=== PATIENT | male | born 1935 | race Caucasian/White ===

== ENCOUNTER 2016-12-04 03:34 | Observation (INO) | payer OTHER ==
--- NOTE | 2016-12-04 03:53 | EDPHY ---
H & P Stated Complaint: SOB and cough HPI/ROS: HPI CHIEF COMPLAINT: Shortness of breath, cough, wheezing HISTORY OF PRESENT ILLNESS: This patient very pleasant 81-year-old male, significant past medical history for pacemaker, CPAP at night with 4 L nasal cannula, presents to the emergency room at 4 o'clock in the morning with shortness of breath, cough and wheezing. Patient states since Friday he has had a nagging cough nonproductive, and intermittent wheezing. Patient denies any fever, vomiting or diarrhea denies chest pain or chest tightness. He states he cannot stop coughing it is keeping him up at night. Denies productive cough. Denies pleuritic pain. Denies chest pain. No underlying lung disease. Denies history of COPD or emphysema History of pneumonia 5 years ago. He does tell me he used a inhaler albuterol however it is 2 years old he is unsure if he even works. Past Medical History: Pacemaker for bradycardia, CPAP at night, hypertension, reflux, depression Past Surgical History: Pacemaker, appendectomy Social History: Denies use of drugs alcohol tobacco products Family History: Noncontributory ROS REVIEW OF SYSTEMS: A comprehensive 10 point review of systems is otherwise negative aside from elements mentioned in the history of present illness. Exam Constitutional triage nursing summary reviewed, vital signs reviewed, awake/ alert. Eyes normal conjunctivae and sclera, EOMI, PERRLA. HENT normal inspection, atraumatic, moist mucus membranes, no epistaxis, neck supple/ no meningismus, no raccoon eyes. Respiratory decreased breath sounds bilaterally,bilateral lung field wheezing, auditory wheezing, no crackles or rales Cardiovascular rate normal, regular rhythm, no murmur, no edema, distal pulses normal. Gastrointestinal soft, non-tender, no rebound, no guarding, normal bowel sounds, no distension, no pulsatile mass. Genitourinary no CVA tenderness. Musculoskeletal no midline vertebral tenderness, full range of motion, no calf swelling, no tenderness of extremities, no meningismus, good pulses, neurovascularly intact. Skin pink, warm, & dry, no rash, skin atraumatic. Neurologic awake, alert and oriented x 3, AAOx3, moves all 4 extremities equally, motor intact, sensory intact, CN II-XII intact, normal cerebellar, normal vision, normal speech. Psychiatric normal mood/affect. Heme/Lymph/Immune no lymphadenopathy. Differential Diagnosis: includes but is not limited to in a particular order, bronchitis, viral syndrome, pneumonia, pneumothorax, CHF Medical Decision Making: This patient appears well nontoxic however audible wheezing on exam patient be given a DuoNeb breathing treatment, patient be given fluid bolus, IV Solu-Medrol, two view chest x-ray will be obtained blood work and will re-evaluate. Re-evaluation: EKG interpretation by me on record in [facility] system. Impression time of EKG 4:51 a.m., this is sinus rhythm rate of 60 right bundle-branch block present. And left anterior fascicular block present. Otherwise not appreciate acute ischemic change. ED x-ray chest two view: Image interpreted by myself. Possible retrocardiac pneumonia. 0457: Re-evaluation at this time patient did receive a DuoNeb breathing treatment. He still has wheezing and still feels shortness of breath. His EKG does not show acute ischemia troponin is negative. Chest x-ray two view shows possible small retrocardiac pneumonia. He will be given a 2nd DuoNeb breathing treatment. He has received 1 L normal saline IV fluid bolus, 125 mg IV Solu- Medrol and I have ordered him IV Rocephin and azithromycin for community- acquired pneumonia. He lives [address]. He is requiring 2 L nasal cannula oxygen at this time as he does desaturate down to 88%. Still has wheezing. Given his age where he lives hypoxia and wheezing will benefit from hospital admission day of observation breathing treatments IV fluids and time for steroids to kick in. He is agreeable for this. 0502: spoke with Dr. Slater who agrees to admit the patient. Source: Patient - Personal History Current Tetanus/Diphtheria Vaccine: Yes Current Tetanus Diphtheria and Acellular Pertussis (TDAP): Yes - Medical/Surgical History Hx Asthma: No Hx Chronic Respiratory Disease: No Hx Diabetes: No Hx Cardiac Disease: Yes Hx Renal Disease: No Hx Cirrhosis: No Hx Alcoholism: No Hx HIV/AIDS: No Hx Splenectomy or Spleen Trauma: No Other PMH: HTN, Hyperlipidemia, GERD, depression. R THR, L TKR, appendectomy, tonsillectomy - Social History Smoking Status: Never smoked Constitutional: Initial Vital Signs Temperature (C) 37.5 C 12/04/16 03:38 Heart Rate 60 02/22/17 03:38 Respiratory Rate 18 12/04/16 03:38 Blood Pressure 150/85 H 12/04/16 03:38 O2 Sat (%) 91 L 12/04/16 03:38 O2 Delivery Mode Room Air O2 (L/minute) 2 Allergies/Adverse Reactions: No Known Allergies Allergy (Verified 12/04/16 03:38) Home Medications: Medication Instructions Recorded Amlodipine Besylate 01/11/14 Aspirin 81mg (OTC) 01/11/14 Celexa 01/11/14 Fish Oil 01/11/14 Gabapentin 01/11/14 Losartan Potassium 01/11/14 Mvi, Adult No.2 Without Vit K 01/11/14 Pepcid 20 MG (OTC) 01/11/14 Simvastatin 01/11/14 Vit B12 01/11/14 Tessalon Pearles 12/04/16 Medical Decision Making - Data Points Laboratory Results: Laboratory Results 12/04/16 04:10 12/04/16 04:10 12/04/16 12/04/16 12/04/16 04:10 04:10 04:10 WBC 7.72 10^3/uL 10^3/uL (3.80-9.50) RBC 5.02 10^6/uL 10^6/uL (4.40-6.38) Hgb 15.9 g/dL g/dL (13.7-17.5) Hct 47.0 % % (40.0-51.0) MCV 93.6 fL fL (81.5-99.8) MCH 31.7 pg pg (27.9-34.1) MCHC 33.8 g/dL g/dL (32.4-36.7) RDW 12.8 % % (11.5-15.2) Plt Count 166 10^3/uL 10^3/uL (150-400) MPV 10.9 fL fL (8.7-11.7) Neut % (Auto) 63.7 % % (39.3-74.2) Lymph % (Auto) 20.5 % % (15.0-45.0) [place] % (Auto) 14.0 % H % (4.5-13.0) Eos % (Auto) 1.4 % % (0.6-7.6) Baso % (Auto) 0.1 % L % (0.3-1.7) Nucleat RBC Rel Count 0.0 % % (0.0-0.2) Absolute Neuts (auto) 4.92 10^3/uL 10^3/uL (1.70-6.50) Absolute Lymphs (auto) 1.58 10^3/uL 10^3/uL (1.00-3.00) Absolute Monos (auto) 1.08 10^3/uL H 10^3/uL (0.30-0.80) Absolute Eos (auto) 0.11 10^3/uL 10^3/uL (0.03-0.40) Absolute Basos (auto) 0.01 10^3/uL L 10^3/uL (0.02-0.10) Absolute Nucleated RBC 0.00 10^3/uL 10^3/uL (0-0.01) Immature Gran % 0.3 % % (0.0-1.1) Immature Gran # 0.02 10^3/uL 10^3/uL (0.00-0.10) PT 13.0 SEC SEC (12.0-15.0) INR 0.99 (0.83-1.16) APTT 27.4 SEC SEC (23.0-38.0) Sodium 137 mEq/L mEq/L (134-144) Potassium 4.9 mEq/L mEq/L (3.5-5.2) Chloride 101 mEq/L mEq/L (97-110) Carbon Dioxide 26 mEq/l mEq/l (22-31) Anion Gap 10 mEq/L mEq/L (8-16) BUN 13 mg/dL mg/dL (7-23) Creatinine 1.2 mg/dL mg/dL (0.7-1.3) Estimated GFR 58 Glucose 181 mg/dL H mg/dL (70-100) Calcium 9.5 mg/dL mg/dL (8.5-10.4) Troponin I < 0.012 ng/mL ng/mL (0-0.034) NT-Pro-B Natriuret Pep 86 pg/mL pg/mL (0-450) Influenza Typ A,B (DFA) 12/04/16 03:48 WBC RBC Hgb Hct MCV MCH MCHC RDW Plt Count MPV Neut % (Auto) Lymph % (Auto) Tucker % (Auto) Eos % (Auto) Baso % (Auto) Nucleat RBC Rel Count Absolute Neuts (auto) Absolute Lymphs (auto) Absolute Monos (auto) Absolute Eos (auto) Absolute Basos (auto) Absolute Nucleated RBC Immature Gran % Immature Gran # PT INR APTT Sodium Potassium Chloride Carbon Dioxide Anion Gap BUN Creatinine Estimated GFR Glucose Calcium Troponin I NT-Pro-B Natriuret Pep Influenza Typ A,B (DFA) Pending Medications Given: Discontinued Medications Hydrocodone Bitart/Acetaminophen ([place] 5/325) 1 tab PO EDNOW ONE Stop: 12/04/16 04:01 Last Admin: 12/04/16 04:25 Dose: 1 tab Albuterol/Ipratropium (Duoneb) 3 ml IH EDNOW ONE Stop: 12/04/16 03:59 Last Admin: 12/04/16 04:21 Dose: 3 ml Sodium Chloride (Ns) 1,000 mls @ 0 mls/hr IV ONCE ONE PRN Reason: Wide Open Stop: 12/04/16 03:59 Last Admin: 12/04/16 04:22 Dose: 1,000 mls Methylprednisolone Sodium Succinate (Solu-Medrol) 125 mg IVP EDNOW ONE Stop: 12/04/16 03:59 Last Admin: 12/04/16 04:22 Dose: 125 mg Departure - Departure Disposition: Home, Routine, Self-Care Clinical Impression: Hypoxia Acute bronchitis Qualifiers: Bronchitis organism: unspecified organism Qualified Code(s): J20.9 - Acute bronchitis, unspecified Pneumonia Qualifiers: Pneumonia type: due to unspecified organism Laterality: unspecified laterality Lung location: unspecified part of lung Qualified Code(s): J18.9 - Pneumonia, unspecified organism Condition: Fair Referrals: GUNJAN BLANKENSHIP [Primary Care Provider] - As per Instructions
[2016-12-04] MEDS ORDERED: methylPREDNISolone SOD SUCC 125 MG/2 ML VIAL IVP ONE (03:58)
[2016-12-04] MEDS ORDERED: IPRATROPIUM/ALBUTEROL 3 ML DEYVIAL IH ONE ×2 (03:58→04:54)
[2016-12-04] MEDS ORDERED: NS 1,000 ML IV ONE (03:58)
[2016-12-04] MEDS ORDERED: HYDROCODONE/APAP 5/325 TAB PO ONE (04:00)
[2016-12-04 04:23] LABS: % IMMATURE GRANULYOCYTES 0.3 % (0.0-1.1); ABSOLUTE IMMATURE GRANULOCYTES 0.02 10^3/uL (0.00-0.10); ADD DIFF? NO; ADD MORPH? NO; ADD SCAN? NO; ATYPICAL LYMPHOCYTE FLAG 20 (0-99); FRAGMENT RBC FLAG 0 (0-99); HEMOGLOBIN 15.9 g/dL (13.7-17.5); LEFT SHIFT FLG 0 (0-99); LIPEMIA HEMOLYSIS FLAG 90 (0-99); MEAN CELL HEMOGLOBIN 31.7 pg (27.9-34.1); MEAN CELL HEMOGLOBIN CONCENTR. 33.8 g/dL (32.4-36.7); MEAN CELL VOLUME 93.6 fL (81.5-99.8); MEAN PLATELET VOLUME 10.9 fL (8.7-11.7); PLATELET CLUMPS FLAG 20 (0-99); PLATELET COUNT 166 10^3/uL (150-400); RED BLOOD CELL COUNT 5.02 10^6/uL (4.40-6.38); RED CELL DISTRIBUTION WIDTH 12.8 % (11.5-15.2)
[2016-12-04 04:35] LABS: ANION GAP 10 mEq/L (8-16); CALCIUM 9.5 mg/dL (8.5-10.4); CARBON DIOXIDE 26 mEq/l (22-31); CHLORIDE 101 mEq/L (97-110); CREATININE 1.2 mg/dL (0.7-1.3); GLOMERULAR FILTRATION RATE 58; GLUCOSE 181 mg/dL (70-100); POTASSIUM 4.9 mEq/L (3.5-5.2); SODIUM 137 mEq/L (134-144)
[2016-12-04 04:39] LABS: INR 0.99 (0.83-1.16)
[2016-12-04 04:40] LABS: APTT 27.4 SEC (23.0-38.0)
[2016-12-04 04:46] LABS: TROPONIN I < 0.012 ng/mL (0-0.034)
[2016-12-04] MEDS ORDERED: AZITHROMYCIN IV 500 MG in D5W 250 ML IV ONE ×2 (04:51→10:00)
--- NOTE | 2016-12-04 04:53 | CPEKG ---
Heart Rate: 68 RR Interval: 882 P-R Interval: 176 QRSD Interval: 140 QT Interval: 428 QTC Interval: 456 P Mears: 57 QRS Mears: -66 T Wave Mears: 37 EKG Severity - ABNORMAL ECG - EKG Impression: SINUS RHYTHM ,PACEMAKER ACTIVITY EKG Impression: RBBB AND LAFB Electronically Signed By: Nicola Augustin 05-Dec-2016 12:14:53
--- NOTE | 2016-12-04 05:44 | PDGENHP ---
History and Physical - Chief Complaint cough - History of Present Illness 81 y/o male with history of hypertension presents to the ED with worsening nonproductive cough since Friday. Last night while trying to sleep he began gasping for air and decided to come to the hospital for further evaluation. He denies any fevers or chills. He denies chest pain. He was seen by his pcp who prescribed Tessalon that hasn't helped. He has also been using Mucinex without improvement. History Information - Allergies/Home Medication List Allergies/Adverse Reactions: No Known Allergies Allergy (Verified 12/04/16 03:38) Home Medications: Amlodipine Besylate 01/11/14 [Last Taken Unknown] Aspirin 81mg (OTC) 01/11/14 [Last Taken Unknown] Celexa 01/11/14 [Last Taken Unknown] Fish Oil 01/11/14 [Last Taken Unknown] Gabapentin 01/11/14 [Last Taken Unknown] Losartan Potassium 01/11/14 [Last Taken Unknown] Mvi, Adult No.2 Without Vit K 01/11/14 [Last Taken Unknown] Pepcid 20 MG (OTC) 01/11/14 [Last Taken Unknown] Simvastatin 01/11/14 [Last Taken Unknown] Vit B12 01/11/14 [Last Taken Unknown] Tessalon Pearles 12/04/16 [Last Taken Unknown] I have personally reviewed and updated: family history, medical history, social history, surgical history - Past Medical History GERD, hypertension Additional medical history: sick sinus syndrome - Surgical History Reports: appendectomy Additional surgical history: bilat TKA, right RAFAT - Family History Additional family history: both parents - Social History Smoking Status: Never smoked Alcohol Use: Other (daily without history of withdrawal) Review of Systems ROS: 10pt was reviewed & negative except for what was stated in HPI & below Physical Exam Temp Pulse Resp BP Pulse Ox 37.5 C 60 18 150/85 H 95 12/04/16 03:38 12/04/16 03:38 12/04/16 03:38 12/04/16 03:38 12/04/16 03:58 Constitutional: no apparent distress, appears nourished, not in pain Eyes: PERRL, anicteric sclera, EOMI Ears, Nose, Mouth, Throat: moist mucous membranes, hearing normal, ears appear normal, no oral mucosal ulcers Cardiovascular: regular rate and rhythym, no murmur, rub, or gallop, No JVD, No edema Respiratory: no respiratory distress, reduced air movement, expiratory wheeze, No rhonchi Gastrointestinal: normoactive bowel sounds, soft, non-tender abdomen, no palpable masses, distension, No guarding, No rebound Genitourinary: no bladder fullness, no bladder tenderness Skin: warm, normal color, no rashes or abrasions, no fluctuance, no induration, No mottled Musculoskeletal: full muscle strength, no muscle tenderness, normal joint ROM, no joint effusions Neurologic: AAOx3, CN II-XII Intact, No facial droop Psychiatric: interacting appropriately, not anxious, not encephalopathic, thought process linear Lymph, Heme, Immunologic: no cervical LAD, no supraclavicular LAD Lab Data & Imaging Review 12/04/16 04:10 12/04/16 04:10 WBC 7.72 10^3/uL (3.80-9.50) 12/04/16 04:10 RBC 5.02 10^6/uL (4.40-6.38) 12/04/16 04:10 Hgb 15.9 g/dL (13.7-17.5) 12/04/16 04:10 Hct 47.0 % (40.0-51.0) 12/04/16 04:10 MCV 93.6 fL (81.5-99.8) 12/04/16 04:10 MCH 31.7 pg (27.9-34.1) 12/04/16 04:10 MCHC 33.8 g/dL (32.4-36.7) 12/04/16 04:10 RDW 12.8 % (11.5-15.2) 12/04/16 04:10 Plt Count 166 10^3/uL (150-400) 12/04/16 04:10 MPV 10.9 fL (8.7-11.7) 12/04/16 04:10 Neut % (Auto) 63.7 % (39.3-74.2) 12/04/16 04:10 Lymph % (Auto) 20.5 % (15.0-45.0) 12/04/16 04:10 [place] % (Auto) 14.0 % (4.5-13.0) H 12/04/16 04:10 Eos % (Auto) 1.4 % (0.6-7.6) 12/04/16 04:10 Baso % (Auto) 0.1 % (0.3-1.7) L 12/04/16 04:10 Nucleat RBC Rel Count 0.0 % (0.0-0.2) 12/04/16 04:10 Absolute Neuts (auto) 4.92 10^3/uL (1.70-6.50) 12/04/16 04:10 Absolute Lymphs (auto) 1.58 10^3/uL (1.00-3.00) 12/04/16 04:10 Absolute Monos (auto) 1.08 10^3/uL (0.30-0.80) H 12/04/16 04:10 Absolute Eos (auto) 0.11 10^3/uL (0.03-0.40) 12/04/16 04:10 Absolute Basos (auto) 0.01 10^3/uL (0.02-0.10) L 12/04/16 04:10 Absolute Nucleated RBC 0.00 10^3/uL (0-0.01) 12/04/16 04:10 Immature Gran % 0.3 % (0.0-1.1) 12/04/16 04:10 Immature Gran # 0.02 10^3/uL (0.00-0.10) 12/04/16 04:10 PT 13.0 SEC (12.0-15.0) 12/04/16 04:10 INR 0.99 (0.83-1.16) 12/04/16 04:10 APTT 27.4 SEC (23.0-38.0) 12/04/16 04:10 Sodium 137 mEq/L (134-144) 12/04/16 04:10 Potassium 4.9 mEq/L (3.5-5.2) 12/04/16 04:10 Chloride 101 mEq/L (97-110) 12/04/16 04:10 Carbon Dioxide 26 mEq/l (22-31) 12/04/16 04:10 Anion Gap 10 mEq/L (8-16) 12/04/16 04:10 BUN 13 mg/dL (7-23) 12/04/16 04:10 Creatinine 1.2 mg/dL (0.7-1.3) 12/04/16 04:10 Estimated GFR 58 12/04/16 04:10 Glucose 181 mg/dL (70-100) H 12/04/16 04:10 Calcium 9.5 mg/dL (8.5-10.4) 12/04/16 04:10 Troponin I < 0.012 ng/mL (0-0.034) 12/04/16 04:10 NT-Pro-B Natriuret Pep 86 pg/mL (0-450) 12/04/16 04:10 Influenza Typ A,B (DFA) NEGATIVE FOR FLU (NEGATIVE) 12/04/16 03:48 Visualized and Interpreted Chest x-ray results: Yes Chest X-Ray results: no infiltrate, normal, normal heart size, infiltrate, other (ppm in left chest. final radiology read pending) Assessment & Plan Assessment: 81 y/o male with history of hypertension presents to the ED with worsening nonproductive cough since Friday # Suspect Acute bronchitis (likely viral) causing wheezing and symptoms consistent with reactive airway disease without any previous history of asthma or copd -place in observation -nebs/mucinex/prednisone -will withhold abx at this time # History of hypertension -cont home meds
[2016-12-04] MEDS ORDERED: IPRATROPIUM/ALBUTEROL 3 ML DEYVIAL IH PRN (06:01)
[2016-12-04] MEDS ORDERED: ONDANSETRON 4 MG/2 ML VIAL IVP PRN (06:01)
[2016-12-04] MEDS ORDERED: ACETAMINOPHEN 325 MG TAB PO PRN (06:01)
[2016-12-04] MEDS ORDERED: hydrALAZINE 20 MG/ML VIAL IVP PRN (08:23)
--- NOTE | 2016-12-04 09:39 | HOSPPROG ---
Hospitalist Progress Note Assessment/Plan: #Bronchitis vs Community Acquired Pneumonia #HTN-Essentiall #GERD #RODRIGO, nocturnal Hypoxemia: Needs 4 L O2 nightly, this is his baseline Plan: Pt was admitted earlier this morning Continue Steroids and Azithromycin Add Lovenox for DVT proph PT/OT consult Hydralazine for PRN HTN Meds have not been confirmed as of yet. He does not know all his meds and doses. Will be reconciled once available. S: Feels better. Still with Cough. No hx of CHF O: VSS NAD AAOx3 RRR Decreased BS, normal WOB No Edema Labs/Studies reviewed. Objective: Vital Signs Temp Pulse Resp BP Pulse Ox 36.3 C 81 14 161/82 H 92 12/04/16 08:11 12/04/16 08:11 12/04/16 08:11 12/04/16 08:11 12/04/16 08:11 12/03/16 12/04/16 12/05/16 05:59 05:59 05:59 Intake Total 1050 Balance 1050 PT 13.0 SEC (12.0-15.0) 12/04/16 04:10 INR 0.99 (0.83-1.16) 12/04/16 04:10 ICD10 Worksheet Patient Problems: Problems Problem Status Onset Acute bronchitis Acute Hypoxia Acute Pneumonia Acute
[2016-12-04] MEDS: predniSONE 20 MG TAB PO SCH (10:17)
[2016-12-04] MEDS: guaiFENesin 600 MG TAB.ER PO SCH ×2 (10:17→19:31)
[2016-12-04] MEDS: IPRATROPIUM/ALBUTEROL 3 ML DEYVIAL IH SCH ×2 (10:41→17:09)
[2016-12-04] MEDS: ENOXAPARIN 40 MG/0.4 ML SYR SC SCH (10:48)
[2016-12-04] MEDS ORDERED: TETRAHYDROZOLINE 0.05% 15 ML OPHT.BTL EACHEYE PRN (13:00)
[2016-12-04] MEDS ORDERED: guaiFENesin/CODEINE PHOS 10 ML UDCUP PO PRN (18:48)
[2016-12-05 06:05] LABS: % IMMATURE GRANULYOCYTES 0.4 % (0.0-1.1); ABSOLUTE IMMATURE GRANULOCYTES 0.05 10^3/uL (0.00-0.10); ADD DIFF? NO; ADD MORPH? NO; ADD SCAN? NO; ATYPICAL LYMPHOCYTE FLAG 20 (0-99); FRAGMENT RBC FLAG 0 (0-99); HEMATOCRIT 41.7 % (40.0-51.0); HEMOGLOBIN 14.1 g/dL (13.7-17.5); LEFT SHIFT FLG 10 (0-99); LIPEMIA HEMOLYSIS FLAG 90 (0-99); MEAN CELL HEMOGLOBIN CONCENTR. 33.8 g/dL (32.4-36.7); MEAN CELL VOLUME 94.6 fL (81.5-99.8); MEAN PLATELET VOLUME 11.7 fL (8.7-11.7); PLATELET CLUMPS FLAG 0 (0-99); PLATELET COUNT 180 10^3/uL (150-400); RED BLOOD CELL COUNT 4.41 10^6/uL (4.40-6.38); RED CELL DISTRIBUTION WIDTH 12.8 % (11.5-15.2)
[2016-12-05 06:20] LABS: ANION GAP 10 mEq/L (8-16); CALCIUM 9.1 mg/dL (8.5-10.4); CARBON DIOXIDE 24 mEq/l (22-31); CHLORIDE 103 mEq/L (97-110); GLOMERULAR FILTRATION RATE > 60; GLUCOSE 247 mg/dL (70-100); POTASSIUM 4.9 mEq/L (3.5-5.2); SODIUM 137 mEq/L (134-144)
[2016-12-05] MEDS: IPRATROPIUM/ALBUTEROL 3 ML DEYVIAL IH SCH ×3 (08:05→12:03)
[2016-12-05] MEDS: ENOXAPARIN 40 MG/0.4 ML SYR SC SCH (08:27)
[2016-12-05] MEDS: guaiFENesin 600 MG TAB.ER PO SCH (08:28)
[2016-12-05] MEDS: predniSONE 20 MG TAB PO SCH (08:28)
[2016-12-05 08:33] VITALS: O2SAT 93
[2016-12-05] MEDS ORDERED: GABAPENTIN 400 MG CAP PO SCH (09:00)
[2016-12-05] MEDS ORDERED: MULTIVITAMINS 1 EACH TAB PO SCH (09:00)
[2016-12-05] MEDS ORDERED: FAMOTIDINE 20 MG TAB PO SCH (09:00)
[2016-12-05] MEDS ORDERED: VENLAFAXINE HCL 75 MG TAB PO SCH (09:00)
[2016-12-05] MEDS ORDERED: ASCORBIC ACID 500 MG TAB PO SCH (09:00)
[2016-12-05] MEDS ORDERED: AZITHROMYCIN 250 MG TAB PO SCH (09:00)
[2016-12-05] MEDS ORDERED: OMEGA-3 FATTY ACIDS 1,000 MG CAP PO SCH (09:00)
[2016-12-05] MEDS ORDERED: CYANO/VITAMIN B12 1000 MCG TAB PO SCH (09:00)
--- NOTE | 2016-12-05 09:52 | PDDCSUM ---
Discharge Summary Discharge Summary: 81yo male admitted to [facility] with SOB and cough. Found to have Bronchitis. CXR showed possible pneumonia and he was initially treated with Rocephin. At this time he is on Azithromycin and a Steroid taper and is doing better. He is still not back to baseline. He was offered to stay another night given that he is not back to baseline, but as he is on oral meds only, he wants to continue his care at home. He also reports that he has good f/u and can likely see his PCP tomorrow. troponin and BNP unremarkable. NO CP. DDX: #Bronchitis vs Community Acquired Pneumonia: -Prednisone -Azithromycin -Supplemental O2 as needed. #HTN-no changes to home meds #GERD #RODRIGO, nocturnal Hypoxemia: Needs 4 L O2 nightly, this is his baseline pe: O: VSS NAD AAOx3 RRR Decreased BS, normal WOB No Edema Meds: see med rec f/u: per above total care time spent on discharge is 40 minutes
[2016-12-05 11:41] VITALS: BP 122/72; PULSE 71; RESP 18; TEMP 98.4
[2016-12-05] MEDS ORDERED: LOSARTAN POTASSIUM 50 MG TAB PO SCH (21:00)
[2016-12-05] MEDS ORDERED: PRAVASTATIN SODIUM 20 MG TAB PO SCH (21:00)
== END 2016-12-05 15:58 | disposition home or self-care (01) ==
LOC: INTOOBSV 05:00 → F3E 05:56
PROVIDERS: ADMIT Family Medicine; ATTEND Family Medicine
DX: J20.9 Acute bronchitis, unspecified (principal); J18.9 Pneumonia, unspecified organism; I10 Essential (primary) hypertension; G47.33 Obstructive sleep apnea (adult) (pediatric); K21.9 Gastro-esophageal reflux disease without esophagitis; Z87.01 Personal history of pneumonia (recurrent); Z95.0 Presence of cardiac pacemaker; Z87.81 Personal history of (healed) traumatic fracture
CPT/HCPCS: 71020; 93005; 97161; G0378; J0456; J0696; J1650; 96374

== ENCOUNTER 2019-01-09 17:37 | Emergency (ER) | payer OTHER ==
[2019-01-09] MEDS ORDERED: ONDANSETRON 4 MG/2 ML VIAL IVP PRN (17:57)
--- NOTE | 2019-01-09 17:57 | EDPHY ---
General Time Seen by Provider: 01/09/19 17:50 Narrative: CLINICAL IMPRESSION: Nausea ASSESSMENT/PLAN: Patient is an 83-year-old male with a significant medical history of hypertension, hyperlipidemia, diabetes mellitus, dementia, essential tremor, GERD and sick sinus syndrome status post remote pacemaker implantation who presents the emergency department with complaints of diarrhea yesterday and nausea today. Patient is afebrile, not toxic appearing and in no acute distress. His abdomen was soft, I am unable to elicit any tenderness to palpation all quadrants. An ECG was obtained which is essentially unchanged since his ECG in 2017-sinus rhythm with a rate of 63, underlying right bundle branch block. This was reviewed by myself and Dr. Bright. Troponin was 0, no findings to suggest ACS. CBC revealed no evidence of leukocytosis. Metabolic panel revealed with elevated blood glucose however no evidence of DKA or a KI, otherwise unremarkable. After treatment with IV fluids and antiemetics patient is currently tolerating by mouth with no difficulty. Plan is to continue outpatient treatment with oral fluids and oral antiemetics. Given the very benign exam, normal laboratory studies, I have a very low suspicion for appendicitis, ischemic bowel, bowel perforation or any other life threatening disease. I suspect his symptoms are secondary to viral illness in light of recent diarrhea. No recent antibiotics, no concern for C difficile. He has had no cough to suggest etiology such as pneumonia, no urinary symptoms to suggest UTI. He was noted to have elevated blood pressure in the emergency department, no evidence of hypertensive urgency or emergency. He will recheck at home and follow up with his primary care provider at [facility]. On repeat examination and prior to discharge he is well-appearing, he denies any complaints whatsoever and is abdomen is soft with no tenderness to palpation. Conservative return precautions discussed-patient will return for fever, recurrent nausea and vomiting, signs of dehydration, chest pain, shortness of breath, abdominal pain or for any other concerning symptom. Patient verbalizes understanding and he is in agreement with this plan. DIFFERENTIAL DX: Nausea and vomiting including but not limited to gastroenteritis, gastritis, appendicitis, and medication side effect. ED COURSE: 1809: ECG reviewed with Dr. Bright, essentially unchanged since previous ECG in 2016. Sinus rhythm with a rate of 63 with underlying right bundle branch block. 1834: On repeat examination the patient is comfortable appearing, no acute distress. He reports he is feeling much better. His abdomen remained soft, in unable to elicit any tenderness to palpation on exam. 1921: Patient is requesting to go home, he states he is feeling much better and denies any complaints whatsoever. He was able to tolerate p.o.. His abdomen is soft, nontender to palpation. CHIEF COMPLAINT: Nausea, feeling "crappy" HPI: Patient is an 83-year-old male with a history of hypertension, diabetes, hyperlipidemia, dementia, essential tremor and GERD who presents to the Emergency Department with sudden-onset nausea around 11:00 a.m. that has not resolved. This occurred after he drink a most. Patient reports sudden-onset nausea, no associated vomiting, has been present all day long. He states that he feels "crappy" with no other specific complaint. He is subsequently experiencing decreased appetite and generally feeling unwell. Patient endorses that he forgot to take all of his medications this morning, did not take his medications until an hour prior to arrival including his diabetic medications. He does not use insulin, no history of DKA. Patient denies any fever, runny nose, congestion or cough. He denies any chest pain or shortness of breath. He denies any abdominal pain. He has had no urinary symptoms to include dysuria , hematuria or frequency. Patient reports a single episode of diarrhea yesterday, no diarrhea or bowel movement today. He is still passing flatus. PMH: Hypertension, hyperlipidemia, diabetes mellitus, dementia, essential tremor, GERD, SSS Pertinent Past Surgical History: Appendectomy, bilateral total knee arthroplasty, right total hip arthroplasty, permanent pacemaker Family History: Not contributory Social History: Never smoked REVIEW OF SYSTEMS: All other systems negative Constitutional: Decreased appetite. No fever, no chills. Eyes: No discharge, vision change ENT: No sore throat, congestion, ear pain. Cardiovascular: No chest pain, no palpitations. Respiratory: No cough, no shortness of breath. Gastrointestinal: Nausea. No abdominal pain, diarrhea. Genitourinary: No hematuria, dysuria, flank pain. Musculoskeletal: No back pain, joint swelling, joint pain, myalgias. Skin: No rashes, color change. Neurological: No headache, dizziness, weakness. PHYSICAL EXAM: General Appearance: Patient is elderly, obese, tired appearing however not toxic-appearing. HENT: Normocephalic, atraumatic. Bilateral external ears are normal. Bilateral tympanic membranes are normal with pearly amin reflex. Nares are clear, mucosa is pink. Oropharynx is clear, uvula is midline. There is no tonsillar enlargement or exudate. The dentition is normal. Eyes: PERRLA, EOMI. Conjunctiva pink, no pallor or injection. Neck: Supple, nontender, no lymphadenopathy, no midline pain, FROM, no meningismus. Respiratory: There are no retractions, lungs are clear to auscultation. Cardiac: Regular rate and rhythm, no murmurs or gallops. Gastrointestinal: Abdomen is soft, obese, nontender, bowel sounds normal, no masses/hernia, no rigidity, guarding or focal peritoneal findings. Neurological: Alert and oriented x 3, CN 2-12 grossly intact, normal gait no ataxia, DTR's intact, normal sensation and strength. Mild left-sided resting tremor. Skin: Warm, dry, no rashes, no nodules on palpation. Musculoskeletal: Extremities are symmetrical, full range of motion, no tenderness, deformity, swelling, or erythema. Psychiatric: Patient is oriented X 3, there is no agitation. MEDICAL DECISION MAKING: Patient was seen independently. Secondary supervising physician at time of evaluation was Dr. Bright. Diagnosis: Nausea. New, requires workup Summary: See Assessment and Plan for summary of ED visit Clinical lab tests: ordered / reviewed. Independent visualization of images, tracing, or specimens: Yes. Decision to obtain medical records or history from someone other than the patient: No Review / Summarize previous medical records: Yes Discussed patient with another provider: Yes, Dr. Bright Patient Progress: Stable, discharge. - History Smoking Status: Never smoked - Objective Vital Signs: Initial Vital Signs Temperature (C) 37.0 C 01/09/19 17:43 Heart Rate 82 01/09/19 17:43 Respiratory Rate 18 01/09/19 17:43 Blood Pressure 191/115 H 01/09/19 17:43 O2 Sat (%) 97 01/09/19 17:43 O2 Delivery Mode Room Air Allergies/Adverse Reactions: No Known Allergies Allergy (Verified 12/04/16 03:38) Home Medications: Medication Instructions Recorded Losartan/Hydrochlorothiazide 01/09/19 Metformin HCl ER 01/09/19 Norvasc 10 mg (*) 01/09/19 SIMVASTATIN 01/09/19 Venlafaxine 25MG (*) 01/09/19 Laboratory Results: Laboratory Results 01/09/19 18:00 01/09/19 18:00 01/09/19 01/09/19 01/09/19 18:05 18:00 18:00 WBC 7.22 10^3/uL 10^3/uL (3.80-9.50) RBC 5.05 10^6/uL 10^6/uL (4.40-6.38) Hgb 15.3 g/dL g/dL (13.7-17.5) Hct 45.4 % % (40.0-51.0) MCV 89.9 fL fL (81.5-99.8) MCH 30.3 pg pg (27.9-34.1) MCHC 33.7 g/dL g/dL (32.4-36.7) RDW 12.7 % % (11.5-15.2) Plt Count 194 10^3/uL 10^3/uL (150-400) MPV 11.0 fL fL (8.7-11.7) Neut % (Auto) 69.1 % % (39.3-74.2) Lymph % (Auto) 18.7 % % (15.0-45.0) Lander % (Auto) 10.2 % % (4.5-13.0) Eos % (Auto) 1.2 % % (0.6-7.6) Baso % (Auto) 0.7 % % (0.3-1.7) Nucleat RBC Rel Count 0.0 % % (0.0-0.2) Absolute Neuts (auto) 4.98 10^3/uL 10^3/uL (1.70-6.50) Absolute Lymphs (auto) 1.35 10^3/uL 10^3/uL (1.00-3.00) Absolute Monos (auto) 0.74 10^3/uL 10^3/uL (0.30-0.80) Absolute Eos (auto) 0.09 10^3/uL 10^3/uL (0.03-0.40) Absolute Basos (auto) 0.05 10^3/uL 10^3/uL (0.02-0.10) Absolute Nucleated RBC 0.00 10^3/uL 10^3/uL (0-0.01) Immature Gran % 0.1 % % (0.0-1.1) Immature Gran # 0.01 10^3/uL 10^3/uL (0.00-0.10) Sodium 136 mEq/L mEq/L (135-145) Potassium 4.6 mEq/L mEq/L (3.5-5.2) Chloride 105 mEq/L mEq/L (97-110) Carbon Dioxide 24 mEq/l mEq/l (22-31) Anion Gap 7 mEq/L mEq/L (6-14) BUN 23 mg/dL mg/dL (7-23) Creatinine 0.9 mg/dL mg/dL (0.7-1.3) Estimated GFR > 60 Glucose 130 mg/dL H mg/dL (70-100) Calcium 9.6 mg/dL mg/dL (8.5-10.4) Total Bilirubin 0.4 mg/dL mg/dL (0.1-1.4) Conjugated Bilirubin 0.3 mg/dL mg/dL (0.0-0.5) Unconjugated Bilirubin 0.1 mg/dL mg/dL (0.0-1.1) AST 34 IU/L IU/L (17-59) ALT 48 IU/L IU/L (21-72) Alkaline Phosphatase 87 IU/L IU/L (38-126) POC Troponin I 0.01 ng/mL ng/mL (0.00-0.08) Total Protein 7.3 g/dL g/dL (6.3-8.2) Albumin 4.2 g/dL g/dL (3.5-5.0) Lipase 46 IU/L IU/L (23-300) Medications Given: Ondansetron HCl (Zofran) 4 mg IVP Q4 PRN PRN Reason: Nausea/Vomiting, Can't Take PO Stop: 07/08/19 17:56 Last Admin: 01/09/19 18:40 Dose: 4 mg Discontinued Medications Sodium Chloride (Ns) 1,000 mls @ 0 mls/hr IV ONCE ONE PRN Reason: Wide Open Stop: 01/09/19 18:28 Last Admin: 01/09/19 18:39 Dose: 1,000 mls Point of Care Test Results: Chemistry 01/09/19 18:05 POC Troponin I 0.01 ng/mL ng/mL (0.00-0.08) Departure - Departure Disposition: Home, Routine, Self-Care Clinical Impression: Nausea Condition: Good Instructions: Acute Nausea and Vomiting (ED) Additional Instructions: DISCHARGE INSTRUCTIONS FROM YOUR DOCTOR Thank you for visiting our emergency department today. Please keep in mind that discharge from the emergency department does not mean that there is nothing wrong - it simply means that we have not identified an emergency condition that requires further evaluation or treatment in the hospital. You should always plan to follow up with primary care for re-evaluation of your condition in the next 2-3 days. Your blood pressure was noted to be elevated in the emergency department, please recheck this at home. I suspect it is secondary to you not taking her blood pressure medications until an hour prior to coming to the emergency department. Follow up with your primary care next week. Rest, push non-diuretic, non-caffeinated fluids, clear liquid diet, then a BRAT diet (bananas, rice, applesauce, toast), then slowly advance diet to normal. Attempt small frequent meals. Zofran as prescribed as needed for any recurrent nausea and/or vomiting. Schedule a follow-up appointment with your primary care physician in the next 1- 2 days for re-evaluation. Bring a copy of your test results with you to that appointment. Return for increased or unmanageable pain, new site or character of pain, flank pain, groin pain, pelvic pain, development of fever, chills, recurrent vomiting , vomiting blood or coffee grounds, diarrhea, constipation, bloody stools, black tarry stools, burning or pain with urination, bloody urine, inability to urinate, decreased urine output or other signs of dehydration, dizziness, weakness, fainting, difficulty breathing or swallowing, chest pain, or for any other new, worsening or worrisome symptoms. People present with illnesses and injuries in different ways, and it is always possible that we have missed something. You may always return for re-evaluation if symptoms worsen or if they are not improving or if you develop new/different symptoms. Again, thank you for choosing our emergency department. We hope that you feel better. Referrals: [facility] ,. [Edm Groups for Call Sched] - As per Instructions
[2019-01-09 18:15] LABS: PLATELET COUNT 194 10^3/uL (150-400)
[2019-01-09] MEDS ORDERED: NS 1,000 ML IV ONE (18:27)
[2019-01-09] MEDS ORDERED: ONDANSETRON 4MG PREPACK#2 BTL TAKEHOME ONE (19:23)
[2019-01-09 19:33] VITALS: BP 181/88
--- NOTE | 2019-01-11 20:44 | CPEKG ---
Test Reason : OPEN Blood Pressure : / mmHG Vent. Rate : 063 BPM Atrial Rate : 061 BPM P-R Int : 177 ms QRS Dur : 147 ms QT Int : 449 ms P-R-T Axes : 041 -80 002 degrees QTc Int : 460 ms Sinus rhythm RBBB and LAFB Confirmed by Cole Bright ([id number]) on 01/11/2019 8:43:33 PM Referred By: Cole Bright Confirmed By:Cole Bright
== END 2019-01-09 19:33 | disposition home or self-care (01) ==
DX: R11.0 Nausea (principal); I10 Essential (primary) hypertension; E78.5 Hyperlipidemia, unspecified; E11.9 Type 2 diabetes mellitus without complications; F03.90 Unspecified dementia, unspecified severity, without behavioral disturbance, psychotic disturbance, mood disturbance, and anxiety; K21.9 Gastro-esophageal reflux disease without esophagitis; Z95.0 Presence of cardiac pacemaker; Z90.89 Acquired absence of other organs
CPT/HCPCS: 93005; 96374; 99284; J2405; 84484-ER